=== PATIENT | male | born 2000 | race Caucasian/White ===

== ENCOUNTER 2023-12-25 05:14 | Emergency (ER) | payer OTHER ==
[2023-12-25] MEDS ORDERED: Ketorolac Tromethamine 30 MG (1 mL) VIAL ONE (05:44)
[2023-12-25] MEDS ORDERED: Ondansetron PF 4 MG/2 ML Vial ONE (05:45)
[2023-12-25] MEDS ORDERED: Morphine 4 MG/ML VIAL ONE ×2 (05:45→10:15)
[2023-12-25 06:05] LABS: #Basophils 0.03 10x3/uL (0.0-0.2); %Basophils 0.2 % (0.0-1.0); %Eosinophils 0.3 % (0.0-10.0); %Lymphocytes 5.8 % (21.0-51.0); %Monocytes 4.1 % (0.0-10.0); Hematocrit 48.4 % (42.0-52.0); Hemoglobin 16.7 g/dL (14.0-18.0); Mean Corpuscular HGB CONC 34.5 g/dL (32.0-36.0); Mean Corpuscular Hemoglobin 29.6 pg (27.0-31.0); Mean Corpuscular Volume 85.7 fL (78.0-98.0); Mean Platelet Volume 10.7 fL (7.4-10.4); Platelet Count 198 10x3/uL (130-400); RBC Distribution Width 12.9 % (11.5-14.5); Red Blood Cell (RBC) Count 5.65 mill/uL (4.70-6.10)
[2023-12-25 07:29] LABS: Bacteria/HPF None Seen HPF (None Seen); Bilirubin Negative (Negative); Blood, Urine Negative (Negative); CAUTI Indications for Culture Fever or rigors; Clarity Clear (Clear); Glucose, Urine (Dipstick) Normal (Negative); Ketone, Urine Negative (Negative); Leukocyte Negative Leu/uL (Negative); Nitrite Negative (Negative); Protein, Urine (Dipstick) Negative (Neg-Trace); RBC/HPF 0-3 HPF (0-3); Specific Gravity, Urine 1.022 (1.002-1.036); Squamous Epithelial None Seen HPF (0-3); Urobilinogen Normal mg/dL (Less than 2); WBC/HPF 0-3 HPF (0-3)
[2023-12-25 07:38] LABS: Urine Culture Reflex No No
[2023-12-25 09:05] LABS: Albumin 3.8 g/dL (3.5-5.0); Chloride 111 mmol/L (98-107); Potassium 4.7 mmol/L (3.5-5.1); Sodium 140 mmol/L (136-145)
[2023-12-25 09:06] LABS: Calcium 8.9 mg/dL (7.8-10.44); Glucose 105 mg/dL (70-105)
[2023-12-25 09:07] LABS: Globulin 3.4 g/dL (2.4-3.5); Protein, Total 7.2 g/dL (6.0-8.3)
[2023-12-25 09:08] LABS: Anion Gap 20 mmol/L (10-20); Carbon Dioxide 14 mmol/L (22-29)
[2023-12-25 09:09] LABS: Alkaline Phosphatase 78 U/L (40-110); Bilirubin, Total 1.5 mg/dL (0.2-1.2)
[2023-12-25 09:10] LABS: Calc. Creatinine Clearance 0 mL/min (70-130); Estimated GFR 107; Lipase 38 U/L (8-78)
[2023-12-25 09:11] LABS: BUN (Urea Nitrogen) 13 mg/dL (8.9-20.6)
[2023-12-25 09:12] LABS: ALT (SGPT) 63 U/L (8-55); AST (SGOT) 45 U/L (5-34)
[2023-12-25] MEDS ORDERED: Dicyclomine 20 MG/2 ML VIAL ONE (10:17)
[2023-12-25 11:28] LABS: Influenza A by NAA Not Detected (NotDetected); Influenza B by NAA Not Detected (NotDetected); SARS-CoV-2 NAA Rapid Test Not Detected (NotDetected)
[2023-12-25] MEDS ORDERED: Iopamidol 370 76% 100 ML VIAL ONE (12:30)
== END 2023-12-25 12:02 | disposition home or self-care (01) ==
LOC: ERS 05:14
DX: R10.84 Generalized abdominal pain (principal); F17.210 Nicotine dependence, cigarettes, uncomplicated; E03.9 Hypothyroidism, unspecified; G47.30 Sleep apnea, unspecified
CPT/HCPCS: 36415; 36416; 74177; 80053; 81001; 83605; 83690; 85025; 96361; 96372; 96374; 96375; 96376; J1885; J2270; J2405; Q9967